=== PATIENT | male | born 1995 | race African-American/Black ===

== ENCOUNTER 2019-08-21 15:42 | Emergency (ER) | payer OTHER ==
[~2019-08-21] VITALS: Ht 185.4 cm; Wt 86.2 kg
[2019-08-21 15:49] VITALS: BP 131/83
[2019-08-21 15:58] LABS: URINE BILIRUBIN NEGATIVE (Negative); URINE BLOOD NEGATIVE (Negative); URINE CLARITY CLEAR; URINE COLOR YELLOW; URINE GLUCOSE-RANDOM* NEGATIVE (Negative); URINE KETONES NEGATIVE (Negative); URINE LEUKOCYTES-REFLEX TRACE (Negative); URINE NITRITE-REFLEX NEGATIVE (Negative); URINE PROTEIN (DIPSTICK) NEGATIVE (Negative)
== END 2019-08-21 16:15 | disposition home or self-care (01) ==
LOC: ER 15:42
PROVIDERS: Nurse Practitioner Family
DX: Z20.2 Contact with and (suspected) exposure to infections with a predominantly sexual mode of transmission (principal)